=== PATIENT | female | born 1960 | race Caucasian/White ===

== ENCOUNTER 2020-10-31 09:17 | Outpatient (CLI) | payer OTHER ==
--- NOTE | 2020-11-01 13:24 | Mammography Report ---
BILATERAL DIGITAL SCREENING MAMMOGRAM 3D/2D: 10/31/2020 CLINICAL: Routine screening. Comparison is made to exams dated: 10/22/2018 mammogram, 10/23/2016 mammogram, and 09/25/2015 mammogram - [facility]. There are scattered fibroglandular elements in both breasts. No significant masses, calcifications, or other findings are seen in either breast. There has been no significant interval change. IMPRESSION: NEGATIVE There is no mammographic evidence of malignancy. A 1 year screening mammogram is recommended. This exam was interpreted at Station ID: [id number]. NOTE: For mammograms, a report in lay terms will be sent to the patient. Approximately 15% of breast malignancies will not be visualized mammographically. In the management of a palpable breast mass, a negative mammogram must not discourage biopsy of a clinically suspicious lesion. Electronically Signed By: Katarzyna [email or web address]:10/31/2020 10:46:29 ACR BI-RADS Category 1: Negative 3341F PARENCHYMAL PATTERN: (A) - The breast(s) demonstrate(s) scattered fibroglandular densities. BI-RADS CATEGORY: (1) - 1 RECOMMENDATION: (ANNUAL) - Recommend routine annual screening mammography. [id number] 1 year screening LATERALITY: (B)
== END 2020-10-31 09:18 | disposition home or self-care (01) ==
LOC: DI 09:17
DX: Z12.31 Encounter for screening mammogram for malignant neoplasm of breast (principal)

== ENCOUNTER 2021-11-28 13:51 | Outpatient (CLI) | payer OTHER ==
--- NOTE | 2021-11-29 14:51 | Mammography Report ---
BILATERAL DIGITAL SCREENING MAMMOGRAM 3D/2D: 11/28/2021 CLINICAL: Routine screening. Comparison is made to exams dated: 10/31/2020 mammogram - [facility], 10/22/2018 kevin mogram, 10/23/2016 mammogram, 09/25/2015 mammogram, 09/21/2014 mammogram, and 09/14/2013 mammogram - [facility]. There are scattered fibroglandular elements in both breasts. No significant masses, calcifications, or other findings are seen in either breast. There has been no significant interval change. IMPRESSION: NEGATIVE There is no mammographic evidence of malignancy. A 1 year screening mammogram is recommended. Based on the Tyrer Cuzick model (a risk assessment model) the patients lifetime risk is 10.6% and he r 10 year risk is 4.1%. According to the ACR, ACS, and NCCN guidelines, an annual breast MRI exam radha ng with mammogram is recommended if the patients lifetime risk is 20% or greater. This exam was interpreted at Station ID: [id number]. NOTE: For mammograms, a report in lay terms will be sent to the patient. Approximately 15% of breast malignancies will not be visualized mammographically. In the management of a palpable breast mass, a negative mammogram must not discourage biopsy of a clinically suspicious lesion. Electronically Signed By: Dani springer/[email or web address]:11/28/2021 16:52:58 ACR BI-RADS Category 1: Negative 3341F PARENCHYMAL PATTERN: (A) - The breast(s) demonstrate(s) scattered fibroglandular densities. BI-RADS CATEGORY: (1) - 1 RECOMMENDATION: (ANNUAL) - Recommend routine annual screening mammography. [id number] 1 year screening LATERALITY: (B)
== END 2021-11-28 13:52 | disposition home or self-care (01) ==
LOC: DI 13:51
DX: Z12.31 Encounter for screening mammogram for malignant neoplasm of breast (principal)

== ENCOUNTER 2023-06-20 07:27 | Day surgery (SDC) | payer OTHER ==
[2023-06-20] MEDS: LACTATED RINGERS 1,000 ML IV ONE ×2 (07:31→09:09)
--- NOTE | 2023-06-20 08:06 | ANESTHESIA ---
Pre-Anesthesia VS, & Labs - Diagnosis SCREENING - Procedure SCREENING Vital Signs: Temp Pulse Resp BP Pulse Ox O2 Flow Rate 36.3 C L 74 15 177/71 H 100 06/20/23 07:31 06/20/23 07:31 06/20/23 07:31 06/20/23 07:31 06/20/23 07:31 Height: 5 ft 8 in Weight (kg): 87.5 kg Body Mass Index: 29.3 BMI Classification: Overweight - NPO Last Fluid Intake: O530 SIP H20 - Is Patient ?: No Home Medications and Allergies Home Medications: Ambulatory Orders Sertraline [Zoloft] 50 mg PO DAILY 06/19/23 Sertraline [Zoloft] 50 mg PO DAILY 06/19/23 Allergies/Adverse Reactions: Allergies Allergy/AdvReac Type Severity Reaction Status Date / Time No Known Drug Allergies Allergy Verified 06/19/23 13:49 Anes History & Medical History - Anesthetic History Anesthesia Complications: reports: No previous complications Family history of Anesthesia Complications: Denies Family history of Malignant Hyperthermia: Denies - Medical History Cardiovascular: reports: None, Hypertension (170S/70 TODAY, 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", NO MEDS) Pulmonary: reports: None Gastrointestinal: reports: None Urinary: reports: None Neuro: reports: None Musculoskeletal: reports: None Endocrine/Autoimmune: reports: None Skin: reports: None Smoking Status: Never smoker Psychosocial: reports: Alcohol (1/DAY) - Surgical History General: reports: Cholecystectomy Results - EKG Results EKG Comparison: Reviewed EKG Exam General: Alert Dental: WNL Mouth Openin Fingerbreadth Neck Mobility: Normal Mallampati classification: II Thyromental Distance: 4-6 cm Plan Anesthesia Type: Total IV Consent for Procedure(s) Verified and Reviewed: Yes Code Status: Attempt Resuscitation ASA classification: 2-Mild systemic disease Is this case an emergency?: No
[2023-06-20] MEDS ORDERED: PROPOFOL 500 MG/50 ML 500 MG/50 ML VIAL ONE (08:13)
[2023-06-20] MEDS ORDERED: LIDOCAINE-PF 2% 10 ML AMP SUBQ ONE (08:38)
[2023-06-20 09:17] VITALS: O2SAT 99
[2023-06-20 09:30] VITALS: BP 148/77
--- NOTE | 2023-06-20 12:47 | ANESTHESIA POST OP EVALUATION ---
Anesthesia Post Eval - Post Anesthesia Eval Vitals: Last Vital Signs Temp 36.0 C L 06/20/23 09:25 Pulse 49 L 06/20/23 09:25 Resp 16 06/20/23 09:25 BP 148/77 H 06/20/23 09:25 Pulse Ox 99 06/20/23 09:25 O2 Flow Rate CV Function Including HR & BP: Stable Pain Control: Satisfactory Nausea & Vomiting: Negative Mental Status: Baseline Respiratory Status: Airway Patent Hydration Status: Satisfactory Anesthesia Complications: None
== END 2023-06-20 07:28 | disposition home or self-care (01) ==
LOC: SDS 07:27
PROVIDERS: ATTEND Surgery
PROC: 0DBM8ZZ Excision of Descending Colon, Via Natural or Artificial Opening Endoscopic (ICD-10-PCS; principal; 2023-06-20 08:30)
DX: Z12.11 Encounter for screening for malignant neoplasm of colon (principal); D12.4 Benign neoplasm of descending colon; I10 Essential (primary) hypertension
CPT/HCPCS: 45380; J7120